=== PATIENT | female | born 1995 | race Caucasian/White ===

== ENCOUNTER 2018-02-18 09:30 | Inpatient (IN) | payer BC ==
[2018-02-18] MEDS ORDERED: NORMAL SALINE 1000 ML 1,000 ML IV ONE (09:54)
--- NOTE | 2018-02-18 10:02 | ER Document Report ---
ED General - General Chief Complaint: Overdose Stated Complaint: POSSIBLE OVERDOSE Time Seen by Provider: 02/18/18 09:43 - HPI Notes: Patient is a 32-year-old female that presents to the emergency department for chief complaint of Wellbutrin overdose. At 850 this morning patient ingested 30 150 mg extended release Wellbutrin tablets. She intentionally ingested the medication stating that she "I just wanted to make the emptiness stop." Patient denies ingestion as a suicidal attempt. She does state that after taking the medication she became concerned that it may kill her. She denies any homicidal ideation. She does have a history of suicide attempt by overdose in the past. Patient has been prescribed Celexa for PTSD and depression but quit taking it without titrating her telling her physician 1 month ago. Currently she complains of nausea and feeling lightheaded. She denies any emesis since ingestion. She denies any other drug use or co-ingestion Past Medical History: Depression, PTSD Past Surgical History: Reviewed in chart Social History: Denies drugs alcohol tobacco Family History: Reviewed and noncontributory for presenting illness Allergies: Reviewed, see documented allergy list. REVIEW OF SYSTEMS: CONSTITUTIONAL : No fever No chills No diaphoresis No recent illness EENT: No vision changes No congestion No sore throat CARDIOVASCULAR: No chest pain No palpitations Lightheadedness RESPIRATORY: No shortness of breath No cough No difficulty breathing GASTROINTESTINAL: No abdominal pain nausea No vomiting No diarrhea GENITOURINARY: No dysuria No hematuria No difficulty urinating MUSCULOSKELETAL: No back pain No leg pain No arm pain SKIN: No rashes No lesions LYMPHATIC: No swollen, enlarged glands. NEUROLOGICAL: No lightheadedness No headache No weakness No paresthesias PSYCHIATRIC: No anxiety depression PHYSICAL EXAMINATION: Vital signs reviewed, nursing noted reviewed. GENERAL: Well-appearing, well-nourished and in no acute distress. HEAD: Atraumatic, normocephalic. EYES: Eyes appear normal, extraocular movements intact, sclera anicteric, conjunctiva are normal. ENT: nares patent, oropharynx clear without exudates. Moist mucous membranes. NECK: Normal range of motion, supple without lymphadenopathy LUNGS: Breath sounds clear to auscultation bilaterally and equal. No wheezes rales or rhonchi. HEART: Tachycardia, regular rhythm without murmurs ABDOMEN: Soft, nontender, normoactive bowel sounds. No rebound, guarding, or rigidity. No masses appreciated. EXTREMITIES: Nontender, good range of motion, no pitting or edema. NEUROLOGICAL: No focal neurological deficits. Moves all extremities spontaneously Motor and sensory grossly intact on exam. PSYCH: Flat affect, withdrawn, poor eye contact SKIN: Warm, Dry, normal turgor, no rashes or lesions noted on exposed skin Past Medical History - Social History Smoking Status: Never Smoker Family History: Reviewed & Not Pertinent Review of Systems - Review of Systems Notes: Dictated Physical Exam - Vital signs Vitals: Resp 19 02/18/18 09:42 - Notes Notes: Dictated Course - Re-evaluation Re-evalutation: 02/18/18 10:01 Vitals reviewed. Nursing notes reviewed. Case discussed with poison control. Poison control recommends 24-hour cardiac monitoring for dysrhythmia. If seizures are present they should be treated with benzodiazepines. They also recommended activated charcoal which patient received. Patient placed on hall monitor and seizure precautions started. She was given IV hydration. 02/18/18 11:05 Patient remained alert and nauseated. She is still tachycardic with stable blood pressure. Lab work is unremarkable. Aspirin and Tylenol levels are negative. Patient will be admitted to [facility] for telemetry monitoring. Case discussed with admitting physician Dr. Telles. Patient stable at time of admission Laboratory 02/18/18 02/18/18 09:15 09:15 WBC 7.0 RBC 4.90 Hgb 14.6 Hct 43.4 MCV 89 MCH 29.8 MCHC 33.6 RDW 13.3 Plt Count 211 Seg Neutrophils % 71.3 Lymphocytes % 20.8 Monocytes % 6.3 Eosinophils % 1.3 Basophils % 0.3 Absolute Neutrophils 5.0 Absolute Lymphocytes 1.5 Absolute Monocytes 0.4 Absolute Eosinophils 0.1 Absolute Basophils 0.0 Sodium 140.6 Potassium 4.1 Chloride 105 Carbon Dioxide 24 Anion Gap 12 BUN 10 Creatinine 0.79 Est GFR ( Amer) > 60 Est GFR (Non-Af Amer) > 60 Glucose 97 Calcium 9.5 Total Bilirubin 0.3 Direct Bilirubin 0.2 Neonat Total Bilirubin Not Reportable Neonat Direct Bilirubin Not Reportable Neonat Indirect Bili Not Reportable AST 18 ALT 14 Alkaline Phosphatase 74 Total Protein 7.5 Albumin 3.8 Salicylates < 1.0 L Acetaminophen < 10 L Serum Alcohol < 10 - Vital Signs Vital signs: Temp Pulse Resp BP Pulse Ox 25 H 109/59 L 93 02/18/18 10:01 02/18/18 10:00 02/18/18 10:01 - Laboratory Result Diagrams: 02/18/18 09:15 02/18/18 09:15 Laboratory results interpreted by me: 02/18/18 09:15 Salicylates < 1.0 L Acetaminophen < 10 L - EKG Interpretation by Me Additional EKG results interpreted by me: 02/18/18 10:07 1001: Sinus tachycardia, first-degree AV block, PA interval 224, rate 135, normal axis, no ectopy, no QT prolongation, QTC 398 Discharge - Discharge Clinical Impression: Intentional overdose of drug in tablet form, Tachycardia Depression Qualifiers: Depression Type: other depression Qualified Code(s): F32.89 - Other specified depressive episodes Condition: Stable Disposition: ADMITTED OBSERVATION Admitting Provider: Hospitalist Unit Admitted: [facility]
[2018-02-18 10:52] LABS: ABSOLUTE EOSINOPHILS # (AUTO) 0.1 10^3/uL (0.0-0.6); ABSOLUTE LYMPHOCYTES (AUTO) 1.5 10^3/uL (0.5-4.7); ABSOLUTE MONOCYTES (AUTO) 0.4 10^3/uL (0.1-1.4); BASOPHILS % (AUTO) 0.3 % (0-2); EOSINOPHILS % (AUTO) 1.3 % (0-6); HEMATOCRIT 43.4 % (36.0-47.0); HEMOGLOBIN 14.6 g/dL (12.0-15.5); LYMPHOCYTES % (AUTO) 20.8 % (13-45); MEAN CORPUSCULAR HEMOGLOBIN 29.8 pg (27.0-33.4); MEAN CORPUSCULAR HGB CONC 33.6 g/dL (32.0-36.0); MEAN CORPUSCULAR VOLUME 89 fl (80-97); MONOCYTES % (AUTO) 6.3 % (3-13); PLATELET COUNT 211 10^3/uL (150-450); RED CELL DISTRIBUTION WIDTH 13.3 % (11.5-14.0); SEGMENTED NEUTROPHILS % (AUTO) 71.3 % (42-78); TOTAL CELLS COUNTED % (AUTO) 100 %
[2018-02-18 11:00] LABS: ALANINE AMINOTRANSFERASE 14 U/L (9-52); ALBUMIN 3.8 g/dL (3.5-5.0); ALKALINE PHOSPHATASE 74 U/L (38-126); ANION GAP 12 (5-19); ASPARTATE AMINO TRANSFERASE 18 U/L (14-36); BILIRUBIN,DIRECT 0.2 mg/dL (0.0-0.4); BILIRUBIN,TOTAL 0.3 mg/dL (0.2-1.3); BLOOD UREA NITROGEN 10 mg/dL (7-20); CALCIUM 9.5 mg/dL (8.4-10.2); CARBON DIOXIDE 24 mmol/L (22-30); CHLORIDE 105 mmol/L (98-107); GLUCOSE 97 mg/dL (75-110); POTASSIUM 4.1 mmol/L (3.6-5.0); SODIUM 140.6 mmol/L (137-145); TOTAL PROTEIN 7.5 g/dL (6.3-8.2)
[2018-02-18 11:03] LABS: ACETAMINOPHEN < 10 ug/mL (10-30); ALCOHOL < 10 mg/dL (NONE DETECTED); SALICYLATE < 1.0 mg/dL (2.0-20.0)
[2018-02-18] MEDS ORDERED: NORMAL SALINE 1000 ML 1,000 ML IV PRN (11:04)
[2018-02-18 12:03] LABS: APPEARANCE,URINE CLOUDY; BILIRUBIN,URINE NEGATIVE (NEGATIVE); COLOR,URINE YELLOW; GLUCOSE, URINE NEGATIVE (NEGATIVE); KETONES,URINE NEGATIVE (NEGATIVE); LEUKOCYTE ESTERASE,URINE LARGE (NEGATIVE); NITRITE,URINE NEGATIVE (NEGATIVE); PROTEIN,URINE NEGATIVE (NEGATIVE); URINE SPECIFIC GRAVITY 1.021; UROBILINOGEN,URINE NEGATIVE mg/dL (<2.0)
[2018-02-18 12:07] LABS: URINE AMPHETAMINES SCREEN NEGATIVE; URINE BARBITURATES SCREEN NEGATIVE; URINE BENZODIAZEPINES SCREEN NEGATIVE; URINE COCAINE SCREEN NEGATIVE; URINE MARIJUANA (THC) SCREEN NEGATIVE; URINE METHADONE SCREEN NEGATIVE; URINE PHENCYCLIDINE SCREEN NEGATIVE
[2018-02-18] MEDS ORDERED: LORAZEPAM INJ 2 MG/1 ML VIAL IV ONE (14:00)
[2018-02-18] MEDS ORDERED: LORAZEPAM INJ 2 MG/1 ML VIAL IV PRN (14:54)
--- NOTE | 2018-02-18 14:54 | PDOC H&P ---
History of Present Illness Admission Date/PCP: 02/18/18 10:41 Patient complains of: Wellbutrin overdose History of Present Illness: Patient is a 32-year-old female with a history of depression and PTSD who was brought in to the ER after ingesting multiple pills of Wellbutrin. Patient took around 30 pills of 150 mg tablet of Wellbutrin around 8:50 this morning.. When asked why she did it, she denies any specific trigger and says " I feels empty and just want to stop feeling the way I did". Her fiance' is with her on the bedside. She denies hallucinations or delusions. She does say she has a history of suicide attempt when she was 15 yrs old. She was given activated charcoal by EMS on the way and just vomited some of it. She apparenetly self-discontinued taking her Celexa previously prescirbed for her depression and PTSD. She denies significant medical issues in the family. Denies smoking, alcohol drinking or use of other recreational drugs. She was noted to have sinus tachycardia in the 130 with normal blood pressures upon presentation. She denies chest pain or SOB. She does feel nauseated but denies abodminal pain. No recent seizure-like activity. Past Medical History Psychiatric Medical History: Reports: Depression, Post Traumatic Stress Disorder Social History Smoking Status: Never Smoker Family History Family History: Reviewed & Not Pertinent Parental Family History Reviewed: Yes - no premature CAD Children Family History Reviewed: No Sibling(s) Family History Reviewed.: No Medication/Allergy Home Medications: Norgestimate-Ethinyl Estradiol [Fmp-Rh-Oenumx Tablet] 1 tab PO DAILY 02/18/18 Allergies/Adverse Reactions: Latex, Natural Rubber Allergy (Mild, Verified 02/18/18 12:44) Pruritis Review of Systems All systems: reviewed and no additional remarkable complaints except as stated - as mentioned in HPI Physical Exam Vital Signs: Temp Pulse Resp BP Pulse Ox 25 H 109/59 L 93 02/18/18 10:01 02/18/18 10:00 02/18/18 10:01 Intake & Output 02/17/18 02/18/18 02/19/18 06:59 06:59 06:59 Intake Total 1000 Balance 1000 General appearance: PRESENT: mild distress - in mild distress from emesis Eye exam: PRESENT: conjunctiva pink, EOMI, PERRLA. ABSENT: scleral icterus Ear exam: PRESENT: normal external ear exam Mouth exam: PRESENT: moist, tongue midline Neck exam: ABSENT: carotid bruit, JVD, lymphadenopathy, thyromegaly Respiratory exam: PRESENT: clear to auscultation fadi. ABSENT: rales, rhonchi, wheezes Cardiovascular exam: PRESENT: RRR, tachycardia Pulses: PRESENT: normal dorsalis pedis pul GI/Abdominal exam: PRESENT: normal bowel sounds, soft. ABSENT: distended, guarding, mass, organolmegaly, rebound, tenderness Rectal exam: PRESENT: deferred Neurological exam: PRESENT: alert, awake, oriented to person, oriented to place , oriented to time, oriented to situation, CN II-XII grossly intact. ABSENT: motor sensory deficit Psychiatric exam: PRESENT: depressed, flat affect Assessment & Plan - Diagnosis (1) Intentional overdose of drug in tablet form Is this a current diagnosis for this admission?: Yes Plan: Patient reports taking 30 pills of 150 mg tablet of Wellbutrin. Wellbutrin toxicity confers risks for seizures and arrhythmias. Poison control [place] consulted by ER provider. Management is primarily supportive. Patient will be closely monitored for such complications. Will admit patient on IMCU with continuous telemetry. Tele show sinus tacycardia in the 120s. Seizure precautions. she has been given a total of 1.5 L of Iv fluids. Will continue IV fluids as she does appear dry. EKG q6 hrs. Recent QRS is 96. Will consider bicarbonate therapy if QRS duration becomes >100. Psych has been consulted form the ER and patient will be IVC'd. (2) Depression Qualifiers: Depression Type: other depression Qualified Code(s): F32.89 - Other specified depressive episodes Is this a current diagnosis for this admission?: Yes Plan: Psych consulted as per #1. Will also check TSH. - Time Time Spent: 30 to 50 Minutes
[2018-02-18] MEDS: NORMAL SALINE 1000 ML 1,000 ML IV PRN ×2 (17:59→20:19)
[2018-02-18] MEDS ORDERED: ONDANSETRON HCL INJ/PF 4 MG/2 ML SDV ONE (18:27)
[2018-02-18] MEDS ORDERED: ONDANSETRON HCL INJ/PF 4 MG/2 ML SDV IV PRN (18:45)
--- NOTE | 2018-02-18 19:20 | RADIOLOGY REPORT (SQ) ---
EXAM DESCRIPTION: CHEST SINGLE VIEW COMPLETED DATE/TIME: 02/18/2018 6:56 pm REASON FOR STUDY: r/o asp COMPARISON: None. EXAM PARAMETERS: NUMBER OF VIEWS: One view. TECHNIQUE: Single frontal radiographic view of the chest acquired. RADIATION DOSE: NA LIMITATIONS: None. FINDINGS: LUNGS AND PLEURA: No opacities, masses or pneumothorax. No pleural effusion. MEDIASTINUM AND HILAR STRUCTURES: No masses. Contour normal. HEART AND VASCULAR STRUCTURES: Heart normal in size. Normal vasculature. BONES: No acute findings. HARDWARE: None in the chest. OTHER: No other significant finding. IMPRESSION: NO ACUTE RADIOGRAPHIC FINDING IN THE CHEST. TECHNICAL DOCUMENTATION: JOB ID: [id number] [place]-72 2010 [employer]- All Rights Reserved Reading location - IP/workstation name: [email or web address]
--- NOTE | 2018-02-18 20:25 | EKG REPORT ---
SEVERITY:- BORDERLINE ECG - SINUS TACHYCARDIA BORDERLINE T ABNORMALITIES, INFERIOR LEADS : Confirmed by: Bhavana Moody MD 18-Feb-2018 20:24:47
--- NOTE | 2018-02-18 20:25 | EKG REPORT ---
SEVERITY:- ABNORMAL ECG - SINUS TACHYCARDIA FIRST DEGREE AV BLOCK MARY ELLEN, CONSIDER BIATRIAL ABNORMALITIES CONSIDER RIGHT VENTRICULAR HYPERTROPHY NONSPECIFIC T ABNORMALITIES, INFERIOR LEADS : Confirmed by: Bhavana Moody MD 18-Feb-2018 20:24:52
--- NOTE | 2018-02-18 20:25 | EKG REPORT ---
SEVERITY:- BORDERLINE ECG - SINUS TACHYCARDIA BORDERLINE T ABNORMALITIES, INFERIOR LEADS : Confirmed by: Bhavana Moody MD 18-Feb-2018 20:24:43
[2018-02-18] MEDS ORDERED: DIAZEPAM INJ 10 MG/2 ML DISP.SYRIN IV PRN (20:42)
[2018-02-19] MEDS: NORMAL SALINE 1000 ML 1,000 ML IV PRN ×3 (04:22→20:53)
[2018-02-19] MEDS: ENOXAPARIN SODIUM INJ 30 MG/0.3 ML DISP.SYRIN SUBCUT SCH (09:30)
--- NOTE | 2018-02-19 13:26 | PDOC PROGRESS REPORT ---
Subjective Progress Note for:: 02/19/18 Subjective:: Ms. Payne is a 22-year-old female with a past medical history of PTSD and depression and prior suicidal ideation who was admitted with Wellbutrin overdose. No acute event overnight. Patient initially was very tachycardic in the 130s. Heart rate has improved to the 106-108. No recurrence of nausea or vomiting. Denies chest pain, palpitations, dizziness or abdominal pain. She says she still does not have an appetite and did not touch her breakfast this morning. She is getting IV fluids. Patient has been IVC. Awaiting further psych recommendations this patient likely will need inpatient psych placement. Reason For Visit: WELLBUTRIN OVERDOSE,SUICIDAL IDEATION,TACHYCARDIA Physical Exam Vital Signs: Temp Pulse Resp BP Pulse Ox 99.2 F 118 H 16 116/60 100 02/19/18 11:08 02/19/18 11:08 02/19/18 11:08 02/19/18 11:08 02/19/18 11:08 Intake & Output 02/18/18 02/19/18 02/20/18 06:59 06:59 06:59 Intake Total 4050 1277 Output Total 200 Balance 3850 1277 Weight 205 lb 4.006 oz General appearance: PRESENT: no acute distress, well-developed, well-nourished Head exam: PRESENT: atraumatic, normocephalic Eye exam: PRESENT: conjunctiva pink, EOMI, PERRLA. ABSENT: scleral icterus Ear exam: PRESENT: normal external ear exam Mouth exam: PRESENT: moist, tongue midline Neck exam: ABSENT: carotid bruit, JVD, lymphadenopathy, thyromegaly Respiratory exam: PRESENT: clear to auscultation fadi. ABSENT: rales, rhonchi, wheezes Cardiovascular exam: PRESENT: RRR, tachycardia. ABSENT: diastolic murmur, rubs , systolic murmur Pulses: PRESENT: normal carotid pulses Rectal exam: PRESENT: deferred Neurological exam: PRESENT: alert, awake, oriented to person, oriented to place , oriented to time, oriented to situation, CN II-XII grossly intact. ABSENT: motor sensory deficit Psychiatric exam: PRESENT: depressed, flat affect Results Laboratory Results: 02/18/18 10:42 Clean Catch Midstream Urine Culture - Final Mixed Skin. Possible Pathogen Impressions: Chest X-Ray 02/18/18 00:00 IMPRESSION: NO ACUTE RADIOGRAPHIC FINDING IN THE CHEST. Assessment & Plan - Diagnosis (1) Intentional overdose of drug in tablet form Is this a current diagnosis for this admission?: Yes Plan: Patient took 30 pills of 150 mg tablet of Wellbutrin. Wellbutrin toxicity confers risks for seizures and arrhythmias. Poison control was also consulted by ER provider. Management is primarily supportive. No seizure-like activity. Patient initially came in very tachycardic in the 130s. Heart rate has improved in the 106-108 She has been given a total of 1.5 L of Iv fluids. Hydration status appears to have improved. She continues to have poor intake. Continue IV fluids. Awaiting further psych recommendations as patient may need to be transferred for inpatient psych placement. Patient has been IVCed. (2) Depression Qualifiers: Depression Type: other depression Qualified Code(s): F32.89 - Other specified depressive episodes Is this a current diagnosis for this admission?: Yes Plan: Psych consulted as per #1. - Time Time Spent with patient: 15-24 minutes
--- NOTE | 2018-02-19 17:01 | EKG REPORT ---
SEVERITY:- ABNORMAL ECG - SINUS TACHYCARDIA FIRST DEGREE AV BLOCK MARY ELLEN, CONSIDER BIATRIAL ABNORMALITIES CONSIDER RIGHT VENTRICULAR HYPERTROPHY BORDERLINE T ABNORMALITIES, INFERIOR LEADS : Confirmed by: Bhavana Moody MD 19-Feb-2018 17:00:42
--- NOTE | 2018-02-19 17:01 | EKG REPORT ---
SEVERITY:- OTHERWISE NORMAL ECG - SINUS TACHYCARDIA : Confirmed by: Bhavana Moody MD 19-Feb-2018 17:00:30
--- NOTE | 2018-02-19 17:01 | EKG REPORT ---
SEVERITY:- BORDERLINE ECG - SINUS TACHYCARDIA BORDERLINE T ABNORMALITIES, INFERIOR LEADS : Confirmed by: Bhavana Moody MD 19-Feb-2018 17:01:04
--- NOTE | 2018-02-19 18:43 | PSYCHOLOGICAL NOTE ---
Psych Note - Psych Note Psych Note: Reason for consult: possible wellbutrin overdose Consent for permissions: Chevyemily', at patient 's bedside [phone] Pt arrived to the ED via EMS with reports of taking approximately 30 tablets of 150 mg sustained-release Wellbutrin at around 0850 this morning. Pt stated she "did not want to end life but just wanted to stop feeling empty". Patient states that she took " a whole bunch of pills" a little before 9am because her girlfriend ended their friendship though text messaging earlier that morning. Patient states that she grabbed the pills only thinking that she would take "one or two" but then couldn't stop taking them. Patient states that she got nervous about the pills that she was taking and went to wake her boyfriend up for help. Patient states that she took the pills because she wanted to feel "different" because now she felt "empty" by losing the friendship. Patient states that she does not want to because she has to 1. go to college 2. get a good job 3. emily' who is at her bed side. Patient states that she has a therapist at [facility] and plans to try to schedule an appointment next week. Patient's fiance states that something like this is totally out of patient's character and he was surprised that she took an overdose of pills. Emily states that he has never heard patient threaten to kill herself or noticed any odd behaviors. Emily did disclose that patient quit her job at the [employer] [place] about 3 weeks ago (through [employer]) but did not know why. Emily also disclosed that patient's DAD is going to [facility] in [place] for cocaine/meth use and patient is worried about seeing him. Patient and emily moved to [place], [place] from [place] in November 2017 for a "fresh" start. Patient is alert but tearful when talking about the overdose. Patient is oriented to person, place, time and circumstance. Delusions are absent behaviors congruent to intact reality based presentation i.e organized and linear thought process. Eye contact was well maintained. Conversational speech was within normal rate, tone and prosody. Intellectual abilities appear to be within the average range. Attention and concentration are good. Insight, judgment, impulse control are fair. Diagnosis 296.21 (F32.0) Major Depressive Disorder, Mild Impression/Plan: Patient is recommended to continue IVC. Patient is tearful and despondent. Patient admits to taking the wellbutrin from a prescription that was filled over a year ago. Patient states that she was heartbroken over a friendship that abruptly ended through text messaging. Patient's fiance confirmed this chain of events. Patient will be re-evaluated in the morning. Dr. Melendez was consulted on the care and management of this patient; attending physician is in agreement with recommendations and disposition.
[2018-02-20] MEDS: NORMAL SALINE 1000 ML 1,000 ML IV PRN (04:56)
[2018-02-20] MEDS: ENOXAPARIN SODIUM INJ 30 MG/0.3 ML DISP.SYRIN SUBCUT SCH (10:09)
[2018-02-20 11:31] LABS: FREE T3 3.26 pg/mL (2.77-5.27); FREE T4 (FREE THYROXINE) 1.16 ng/dL (0.78-2.19)
--- NOTE | 2018-02-20 12:24 | Progress Note ---
Provider Note Provider Note: Patient is medically stable and fit for transfer to inpatient psych placement pending final psych recommendations.
--- NOTE | 2018-02-20 14:52 | PDOC TRANSFER SUMMARY ---
General Admission Date/PCP: 02/18/18 11:15 - Transfer Diagnosis (1) Intentional overdose of drug in tablet form Is this a current diagnosis for this admission?: Yes (2) Depression Is this a current diagnosis for this admission?: Yes - Transfer Medications Home Medications: Norgestimate-Ethinyl Estradiol [Vki-Bd-Vqrajz Tablet] 1 tab PO DAILY 02/18/18 Transfer Medications: Current Medications Diazepam (Valium Inj 10 Mg/2 Ml Disp.Syrin) 5 mg IV Q8HP PRN PRN Reason: ANXIETY Stop: 02/25/18 20:41 Last Admin: 02/19/18 01:00 Dose: 5 mg Enoxaparin Sodium (Lovenox Inj 40 Mg/0.4 Ml Disp.Syrin) 40 mg SUBCUT DAILY SUZETTE Stop: 03/23/18 09:59 Lorazepam (Ativan Inj 2 Mg/1 Ml Vial) 2 mg IV ONCEP PRN PRN Reason: SEIZURES Stop: 02/25/18 14:53 Last Admin: 02/18/18 19:02 Dose: 2 mg Ondansetron HCl (Zofran Inj/Pf 4 Mg/2 Ml Sdv) 4 mg IV Q4HP PRN PRN Reason: FOR NAUSEA/VOMITING Stop: 03/20/18 18:44 Last Admin: 02/18/18 20:10 Dose: 4 mg - Allergies Allergies/Adverse Reactions: Latex, Natural Rubber Allergy (Mild, Verified 02/18/18 12:44) Pruritis Hospital Course Hospital Course: Patient is a 32-year-old female with a history of depression and PTSD who was brought in to the ER after ingesting multiple pills of Wellbutrin. Patient took around 30 pills of 150 mg tablet of Wellbutrin. When asked why she did it, she denies any specific trigger and says "I feels empty and just want to stop feeling the way I did". She denies hallucinations or delusions. She does say she has a history of suicide attempt when she was 15 yrs old. She was given activated charcoal by EMS on the way but was unable to tolerate half of it. She apparently self-discontinued taking her Celexa previously prescribed for her depression and PTSD. She denies significant medical issues in the family. Denies smoking, alcohol drinking or use of other recreational drugs. She was noted to have sinus tachycardia in the 130 with normal blood pressures upon presentation. Poison control was also consulted in the ER and recommended supportive treatment. Aside from sinus tachycardia in the 120-130s, there was no QT or QRS prolongation on serial EKGs. She was given IV fluids. Her heart gradually improved with IV fluids and normalized. Her labs were also unremarkable except for a mildly elevated TSH of 6 but normal T3 and T4. Recommendation is to REPEAT TSH in 2 weeks. She does not have a previous diagnosis of hypothyroidism. If repeat TSH is elevated, then initiating synthroid can be considered. Patient was IVC'ed. Psych was also consulted. Patient will be going for inpatient psych management. Physical Exam Vital Signs: Temp Pulse Resp BP Pulse Ox 98.4 F 123 H 16 118/81 100 02/20/18 11:25 02/20/18 13:59 02/20/18 11:25 02/20/18 11:25 02/20/18 11:25 Intake & Output 02/19/18 02/20/18 02/21/18 06:59 06:59 06:59 Intake Total 3050 4022 698 Output Total 200 Balance 2850 4022 698 Weight 205 lb 4.006 oz 207 lb 3.752 oz General appearance: PRESENT: no acute distress, well-developed, well-nourished Head exam: PRESENT: atraumatic, normocephalic Eye exam: PRESENT: conjunctiva pink, EOMI, PERRLA. ABSENT: scleral icterus Ear exam: PRESENT: normal external ear exam Mouth exam: PRESENT: moist, tongue midline Neck exam: ABSENT: carotid bruit, JVD, lymphadenopathy, thyromegaly Respiratory exam: PRESENT: clear to auscultation fadi. ABSENT: rales, rhonchi, wheezes Cardiovascular exam: PRESENT: RRR. ABSENT: diastolic murmur, rubs, systolic murmur Pulses: PRESENT: normal dorsalis pedis pul Vascular exam: PRESENT: normal capillary refill GI/Abdominal exam: PRESENT: normal bowel sounds, soft. ABSENT: distended, guarding, mass, organolmegaly, rebound, tenderness Rectal exam: PRESENT: deferred Neurological exam: PRESENT: alert, awake, oriented to person, oriented to place , oriented to time, oriented to situation, CN II-XII grossly intact. ABSENT: motor sensory deficit Psychiatric exam: PRESENT: depressed, flat affect Results Laboratory Results: 02/20/18 10:21 Free T4 1.16 Free T3 pg/mL 3.26 Impressions: Chest X-Ray 02/18/18 00:00 IMPRESSION: NO ACUTE RADIOGRAPHIC FINDING IN THE CHEST.
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
[2018-02-20] MEDS ORDERED: ACETAMINOPHEN 325 MG TABLET PO PRN (19:44)
[2018-02-21] MEDS: ENOXAPARIN SODIUM INJ 40 MG/0.4 ML DISP.SYRIN SUBCUT SCH (09:03)
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
--- NOTE | 2018-02-21 16:38 | PDOC PROGRESS REPORT ---
Subjective Progress Note for:: 02/21/18 Subjective:: 22-year-old female past medical history of PTSD, prior suicidal ideation and depression who was brought to ED on 02/18/2018 after ingesting multiple pills of Wellbutrin at home. No acute events overnight. Upon my encounter patient was sleeping and woke her up she is very pleasant and cooperative with physical examination. S she states she could not get a good sleep last night. Denies any fever, chest pain , shortness of breath, nausea, vomiting, palpitation, suicidal ideation, diarrhea or constipation. Reason For Visit: WELLBUTRIN OVERDOSE,SUICIDAL IDEATION,TACHYCARDIA Physical Exam Vital Signs: Temp Pulse Resp BP Pulse Ox 98.5 F 101 H 18 109/61 100 02/21/18 11:29 02/21/18 14:00 02/21/18 11:29 02/21/18 11:29 02/21/18 11:29 Intake & Output 02/20/18 02/21/18 02/22/18 06:59 06:59 06:59 Intake Total 4022 1393 459 Balance 4022 1393 459 Weight 94 kg 89.3 kg General appearance: PRESENT: no acute distress, well-developed, well-nourished Head exam: PRESENT: atraumatic, normocephalic Eye exam: PRESENT: conjunctiva pink, EOMI, PERRLA. ABSENT: scleral icterus Ear exam: PRESENT: normal external ear exam Mouth exam: PRESENT: moist, tongue midline Neck exam: ABSENT: carotid bruit, JVD, lymphadenopathy, thyromegaly Respiratory exam: PRESENT: clear to auscultation fadi. ABSENT: rales, rhonchi, wheezes Cardiovascular exam: PRESENT: RRR. ABSENT: diastolic murmur, rubs, systolic murmur Pulses: PRESENT: normal dorsalis pedis pul Vascular exam: PRESENT: normal capillary refill GI/Abdominal exam: PRESENT: normal bowel sounds, soft. ABSENT: distended, guarding, mass, organolmegaly, rebound, tenderness Rectal exam: PRESENT: deferred Extremities exam: PRESENT: full ROM. ABSENT: calf tenderness, clubbing, pedal edema Neurological exam: PRESENT: alert, awake, oriented to person, oriented to place , oriented to time, oriented to situation, CN II-XII grossly intact. ABSENT: motor sensory deficit Psychiatric exam: PRESENT: appropriate affect, normal mood. ABSENT: homicidal ideation, suicidal ideation Skin exam: PRESENT: dry, intact, warm. ABSENT: cyanosis, rash Results Impressions: Chest X-Ray 02/18/18 00:00 IMPRESSION: NO ACUTE RADIOGRAPHIC FINDING IN THE CHEST. Assessment & Plan - Diagnosis (1) Intentional overdose of drug in tablet form Is this a current diagnosis for this admission?: Yes Plan: Patient has taken about 30 pills of 150 mg of Wellbutrin at home. Patient has been observed for any side effect. Patient has not had any seizure-like activity. Psych is on board and pending inpatient transfer. Patient started on Zyprexa 5 mg twice daily and Cogentin 1 mg daily as per psych recommendation. (2) Depression Qualifiers: Depression Type: other depression Qualified Code(s): F32.89 - Other specified depressive episodes Is this a current diagnosis for this admission?: Yes Plan: Denies any suicidal or homicidal ideation. Psych on board. Pending inpatient psych transfer. (3) Tachycardia Is this a current diagnosis for this admission?: Yes Plan: Improving. This could be secondary to her anxiety and nervousness. Patient is very nervous about inpatient psych admission. CBC CMP within normal limits. TSH was mildly elevated however T3 and T4 within. Urine was positive for leukocyte esterase however patient is denying any symptoms.
[2018-02-21] MEDS: OLANZAPINE 5 MG TABLET PO SCH (21:22)
[2018-02-21] MEDS: BENZTROPINE MESYLATE 1 MG TABLET PO SCH (21:22)
[2018-02-22] MEDS: OLANZAPINE 5 MG TABLET PO SCH ×2 (09:08→21:41)
[2018-02-22] MEDS: ENOXAPARIN SODIUM INJ 40 MG/0.4 ML DISP.SYRIN SUBCUT SCH (09:16)
--- NOTE | 2018-02-22 15:51 | PDOC PROGRESS REPORT ---
Subjective Progress Note for:: 02/22/18 Subjective:: 22-year-old female past medical history of PTSD, prior suicidal ideation and depression who was brought to ED on 02/18/2018 after ingesting multiple pills of Wellbutrin at home. No acute events overnight. Patient asleep on my encounter. Had to wake up patient patient stated that she had a better night sleep overnight. Denies any SI/HI. Denies any fever, shortness of breath, chest pain, nausea, vomiting, diarrhea, constipation or any urinary symptoms. Reason For Visit: WELLBUTRIN OVERDOSE,SUICIDAL IDEATION,TACHYCARDIA Physical Exam Vital Signs: Temp Pulse Resp BP Pulse Ox 98.4 F 99 16 114/64 100 02/22/18 12:06 02/22/18 14:00 02/22/18 12:06 02/22/18 12:06 02/22/18 12:06 Intake & Output 02/21/18 02/22/18 02/23/18 06:59 06:59 06:59 Intake Total 1393 696 436 Balance 1393 696 436 Weight 89.3 kg 88.2 kg General appearance: PRESENT: no acute distress, well-developed, well-nourished Head exam: PRESENT: atraumatic, normocephalic Eye exam: PRESENT: conjunctiva pink, EOMI, PERRLA. ABSENT: scleral icterus Ear exam: PRESENT: normal external ear exam Mouth exam: PRESENT: moist, tongue midline Neck exam: ABSENT: carotid bruit, JVD, lymphadenopathy, thyromegaly Respiratory exam: PRESENT: clear to auscultation fadi. ABSENT: rales, rhonchi, wheezes Cardiovascular exam: PRESENT: RRR. ABSENT: diastolic murmur, rubs, systolic murmur Pulses: PRESENT: normal dorsalis pedis pul Vascular exam: PRESENT: normal capillary refill GI/Abdominal exam: PRESENT: normal bowel sounds, soft. ABSENT: distended, guarding, mass, organolmegaly, rebound, tenderness Rectal exam: PRESENT: deferred Extremities exam: PRESENT: full ROM. ABSENT: calf tenderness, clubbing, pedal edema Neurological exam: PRESENT: alert, awake, oriented to person, oriented to place , oriented to time, oriented to situation, CN II-XII grossly intact. ABSENT: motor sensory deficit Psychiatric exam: PRESENT: appropriate affect, normal mood. ABSENT: homicidal ideation, suicidal ideation Skin exam: PRESENT: dry, intact, warm. ABSENT: cyanosis, rash Results Impressions: Chest X-Ray 02/18/18 00:00 IMPRESSION: NO ACUTE RADIOGRAPHIC FINDING IN THE CHEST. Assessment & Plan - Diagnosis (1) Intentional overdose of drug in tablet form Is this a current diagnosis for this admission?: Yes Plan: Patient has taken about 30 pills of 150 mg of Wellbutrin at home. Patient has been observed for any side effect. Patient has not had any seizure-like activity. Pending inpatient psych transfer.. Patient started on Zyprexa 5 mg twice daily and Cogentin 1 mg daily as per psych recommendation. (2) Depression Qualifiers: Depression Type: other depression Qualified Code(s): F32.89 - Other specified depressive episodes Is this a current diagnosis for this admission?: Yes Plan: Denies any suicidal or homicidal ideation. Psych on board. Pending inpatient psych transfer. (3) Tachycardia Is this a current diagnosis for this admission?: Yes Plan: Improved. This could be secondary to her anxiety and nervousness. Patient is very nervous about inpatient psych admission. CBC CMP within normal limits. TSH was mildly elevated however T3 and T4 within. Urine was positive for leukocyte esterase however patient is denying any symptoms.
--- NOTE | 2018-02-22 16:36 | PSYCHOLOGICAL NOTE ---
Psych Note - Psych Note Psych Note: Reason for consult: Intentional overdose Patient is a 32-year-old female with a history of depression and PTSD who was brought in to the ER after ingesting multiple pills of Wellbutrin. Check-in conducted with patient Patient reports "things are more colorful." She continued to state that she is now she has been more tired and has "space out" sometimes. Clinician discussed normal side effects of medication the patient is currently taking. Patient did identify positive results of not feeling like she has to cry all the time. While patient's presentation has improved patient's affect is still dysphoric. Medication recommendations per [facility]'s contracted psychiatrist Dr. Jessica OTOOLE are as follows Please continue Zyprexa and cogentin please add Buspar 5mg twice Diagnosis 309.81 (F 43.10) posttraumatic stress disorder per history provided by patient R/O bipolar disorder; depressive type Impression\\plan: Patient is recommended to continue under IVC. Patient endorses intentional overdose with intent to end her life. Patient was noncompliant on her Celexa stating that she wanted to be creative again so stopped taking her medication. After multiple stressors patient was unable to engage in healthy coping skills. The behavioral health team is currently looking for inpatient treatment placement. Dr. Melendez was consulted on the care and management of this patient; attending physician is in agreement with recommendations and disposition.
[2018-02-22] MEDS: BENZTROPINE MESYLATE 1 MG TABLET PO SCH (21:41)
[2018-02-23 03:35] VITALS: BP 108/69
--- NOTE | 2018-02-23 08:49 | PSYCHOLOGICAL NOTE ---
Psych Note - Psych Note Psych Note: Reason for consult: Intentional overdose Patient is a 32-year-old female with a history of depression and PTSD who was brought in to the ER after ingesting multiple pills of Wellbutrin. Medication recommendations per [facility]'s contracted psychiatrist Dr. Jessica OTOOLE are as follows Please continue Zyprexa and cogentin please add Buspar 5mg twice Diagnosis 309.81 (F 43.10) posttraumatic stress disorder per history provided by patient R/O bipolar disorder; depressive type Impression\plan: Patient is recommended to continue under IVC. Patient was accepted to [facility]; transportation has been requested. Dr. Melendez was consulted on the care and management of this patient; attending physician is in agreement with recommendations and disposition.
[2018-02-23] MEDS: ENOXAPARIN SODIUM INJ 40 MG/0.4 ML DISP.SYRIN SUBCUT SCH (09:16)
[2018-02-23] MEDS: OLANZAPINE 5 MG TABLET PO SCH (09:19)
--- NOTE | 2018-02-23 09:26 | PDOC TRANSFER SUMMARY ---
General Admission Date/PCP: 02/18/18 11:15 - Transfer Diagnosis (1) Intentional overdose of drug in tablet form Is this a current diagnosis for this admission?: Yes (2) Depression Is this a current diagnosis for this admission?: Yes (3) Tachycardia Is this a current diagnosis for this admission?: Yes - Transfer Medications Home Medications: Norgestimate-Ethinyl Estradiol [Pjr-Sn-Rvdpiy Tablet] 1 tab PO DAILY 02/18/18 Transfer Medications: Current Medications Acetaminophen (Tylenol 325 Mg Tablet) 650 mg PO Q8HP PRN PRN Reason: PAIN/FEVER Stop: 03/22/18 19:43 Last Admin: 02/20/18 19:52 Dose: 650 mg Benztropine Mesylate (Cogentin 1 Mg Tablet) 1 mg PO QHS SUZETTE Stop: 03/23/18 21:59 Last Admin: 02/22/18 21:41 Dose: 1 mg Buspirone HCl (Buspar 10 Mg Tablet) 5 mg PO Q12 SUZETTE Stop: 03/25/18 09:59 Last Admin: 02/23/18 09:19 Dose: 5 mg Diazepam (Valium Inj 10 Mg/2 Ml Disp.Syrin) 5 mg IV Q8HP PRN PRN Reason: ANXIETY Stop: 02/25/18 20:41 Last Admin: 02/19/18 01:00 Dose: 5 mg Enoxaparin Sodium (Lovenox Inj 40 Mg/0.4 Ml Disp.Syrin) 40 mg SUBCUT DAILY SUZETTE Stop: 03/23/18 09:59 Last Admin: 02/23/18 09:16 Dose: Not Given Lorazepam (Ativan Inj 2 Mg/1 Ml Vial) 2 mg IV ONCEP PRN PRN Reason: SEIZURES Stop: 02/25/18 14:53 Last Admin: 02/18/18 19:02 Dose: 2 mg Olanzapine (Zyprexa 5 Mg Tablet) 5 mg PO Q12 SUZETTE Stop: 03/23/18 21:59 Last Admin: 02/23/18 09:19 Dose: 5 mg Ondansetron HCl (Zofran Inj/Pf 4 Mg/2 Ml Sdv) 4 mg IV Q4HP PRN PRN Reason: FOR NAUSEA/VOMITING Stop: 03/20/18 18:44 Last Admin: 02/18/18 20:10 Dose: 4 mg - Allergies Allergies/Adverse Reactions: Latex, Natural Rubber Allergy (Mild, Verified 02/18/18 12:44) Pruritis Hospital Course Hospital Course: Ms. Rosangela Payne is a 22-year-old female with a history of depression and PTSD who was brought in to the ER after ingesting multiple pills of Wellbutrin. Patient took around 30 pills of 150 mg tablet of Wellbutrin. When asked why she did it, she denies any specific trigger and says "I feels empty and just wanted to stop feeling the way I did". She denies hallucinations or delusions. She does say she has a history of suicide attempt when she was 15 yrs old. She was given activated charcoal by EMS on the way but was unable to tolerate half of it. She apparently self- discontinued taking her Celexa previously prescribed for her depression and PTSD. She denies significant medical issues in the family. Denies smoking, alcohol drinking or use of other recreational drugs. She was noted to have sinus tachycardia in the 130 with normal blood pressures upon presentation. Poison control was also consulted in the ER and recommended supportive treatment. Sinus tachycardia initially at the 120-130s proved, there was no QT or QRS prolongation on serial EKGs. Her labs were also unremarkable except for a mildly elevated TSH of 6 but normal T3 and T4. Recommendation is to REPEAT TSH in 2 weeks. She does not have a previous diagnosis of hypothyroidism. If repeat TSH is elevated, then initiating synthroid can be considered. Patient was IVC'ed. started on Zyprexa, Cogentin and BuSpar. Patient will be going for inpatient psych management. Physical Exam Vital Signs: Temp Pulse Resp BP Pulse Ox 97.9 F 94 16 108/69 99 02/23/18 03:16 02/23/18 07:00 02/23/18 03:16 02/23/18 03:16 02/23/18 03:16 Intake & Output 02/22/18 02/23/18 02/24/18 06:59 06:59 06:59 Intake Total 696 1174 Balance 696 1174 Weight 88.2 kg 89.8 kg General appearance: PRESENT: no acute distress, well-developed, well-nourished Head exam: PRESENT: atraumatic, normocephalic Eye exam: PRESENT: conjunctiva pink, EOMI, PERRLA. ABSENT: scleral icterus Ear exam: PRESENT: normal external ear exam Mouth exam: PRESENT: moist, tongue midline Neck exam: ABSENT: carotid bruit, JVD, lymphadenopathy, thyromegaly Respiratory exam: PRESENT: clear to auscultation fadi. ABSENT: rales, rhonchi, wheezes Cardiovascular exam: PRESENT: RRR. ABSENT: diastolic murmur, rubs, systolic murmur Pulses: PRESENT: normal dorsalis pedis pul Vascular exam: PRESENT: normal capillary refill GI/Abdominal exam: PRESENT: normal bowel sounds, soft. ABSENT: distended, guarding, mass, organolmegaly, rebound, tenderness Rectal exam: PRESENT: deferred Extremities exam: PRESENT: full ROM. ABSENT: calf tenderness, clubbing, pedal edema Neurological exam: PRESENT: alert, awake, oriented to person, oriented to place , oriented to time, oriented to situation, CN II-XII grossly intact. ABSENT: motor sensory deficit Psychiatric exam: PRESENT: appropriate affect, normal mood. ABSENT: homicidal ideation, suicidal ideation Skin exam: PRESENT: dry, intact, warm. ABSENT: cyanosis, rash Results Impressions: Chest X-Ray 02/18/18 00:00 IMPRESSION: NO ACUTE RADIOGRAPHIC FINDING IN THE CHEST.
[2018-02-23] MEDS ORDERED: BUSPIRONE HCL 10 MG TABLET PO SCH (10:00)
== END 2018-02-23 10:33 | DRG 918 ==
LOC: ER 09:30 → EH 10:41 → OBSVTOIN 11:15 → 3S 12:28
PROVIDERS: ADMIT Family Medicine; ATTEND Family Medicine
DX: T43.292A Poisoning by other antidepressants, intentional self-harm, initial encounter (principal); F43.10 Post-traumatic stress disorder, unspecified; F32.9 Major depressive disorder, single episode, unspecified; Y92.003 Bedroom of unspecified non-institutional (private) residence as the place of occurrence of the external cause; R00.0 Tachycardia, unspecified; Z91.5 Personal history of self-harm; Z79.899 Other long term (current) drug therapy; Z91.040 Latex allergy status; T43.226A Underdosing of selective serotonin reuptake inhibitors, initial encounter; Z91.128 Patient's intentional underdosing of medication regimen for other reason
CPT/HCPCS: 36415; 71045; 80053; 80307; 81001; 84439; 84443; 84481; 84703; 85025; 87086; 93005; 93010; 96360; 96361; 99285; J1650; J2060; J2405; J3360

== ENCOUNTER 2020-02-27 14:38 | Emergency (ER) | payer SELFPAY ==
[2020-02-27 14:45] VITALS: BP 124/83
--- NOTE | 2020-02-27 14:58 | ER Document Report ---
ED Medical Screen (RME) - General Chief Complaint: Abdominal Pain Stated Complaint: ABDOMINAL PAIN Notes: Patient is a 24-year-old white female with a history of "mental health" conditions who presents the emergency department with a chief complaint of abdominal pain began this morning. States it is a stabbing pain in the left lower quadrant, does not radiate. No specific provocative or palliative factors. Has been constant since onset. States associated with nausea, vomiting and diarrhea. Denies any chance of . States she is not sexually active. Denies any history of the same. I have treated and performed a rapid initial assessment of this patient. A comprehensive ED assessment and evaluation of the patient, analysis of test results and completion of medical decision making process will be conducted by additional ED providers. PHYSICAL EXAMINATION: GENERAL: Well-appearing, well-nourished and in no acute distress. A&Ox4. Answers questions appropriately. Abdomen: Exam deferred given sitting in chair in triage. Proper abdominal exam will be obtained by alternate provider in the main emergency department at which point imaging of the abdomen will be decided. TRAVEL OUTSIDE OF THE [place] IN LAST 30 DAYS: No - Related Data Allergies/Adverse Reactions: Latex, Natural Rubber Allergy (Mild, Verified 02/27/20 14:53) Pruritis Past Medical History Renal/ Medical History: Denies: Hx Peritoneal Dialysis Psychiatric Medical History: Reports: Hx Depression, Hx Post Traumatic Stress Disorder Physical Exam - Vital signs Vitals: Temp Pulse Resp BP Pulse Ox 99.1 F 100 16 124/83 93 02/27/20 14:43 02/27/20 14:43 02/27/20 14:43 02/27/20 14:43 02/27/20 14:43 Course - Vital Signs Vital signs: Temp Pulse Resp BP Pulse Ox 99.1 F 100 16 124/83 93 02/27/20 14:43 02/27/20 14:43 02/27/20 14:43 02/27/20 14:43 02/27/20 14:43
--- NOTE | 2020-02-27 15:41 | ER Document Report ---
Doctor's Note Notes: Patient was not in the room when I went in to examine her at 1530 hrs. Nursing staff could not locate her on the premises and it is presumed she eloped after initial evaluation by midlevel provider at triage. 02/27/20 15:40
== END 2020-02-27 15:44 | disposition left against medical advice (07) ==
LOC: ER 14:38
DX: R10.32 Left lower quadrant pain (principal); Z91.040 Latex allergy status
CPT/HCPCS: 99281